=== PATIENT | female | born 1990 | race Caucasian/White ===

== ENCOUNTER 2021-06-06 15:35 | Emergency (ER) | payer BC ==
[2021-06-06 16:45] LABS: HEMOGLOBIN 11.6 gm/dl (12.3-15.3); RED BLOOD COUNT 4.57 M/UL (4.00-5.10); WHITE BLOOD COUNT 7.7 K/UL (4.5-11.0)
[2021-06-06 17:22] LABS: BUN/CREATININE RATIO 11 (0-10)
[2021-06-06] MEDS ORDERED: BACTRIM DS TAB1 EACH PO (23:13)
[2021-06-09 21:09] LABS: CHLAMYDIA TRACHOMATIS, NAA Negative (Negative); NEISSERIA GONORRHOEAE, NAA Negative (Negative)
== END 2021-06-06 23:25 | disposition home or self-care (01) ==
LOC: ER1 15:35
PROVIDERS: Physician Assistant
DX: N39.0 Urinary tract infection, site not specified (principal)
CPT/HCPCS: 76830; 80053; 81001; 84703; 85025; 87210; 96374; 96375; 99284; J0696; J1885; J2405